=== PATIENT | female | born 2000 | race Two or more races ===

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

== ENCOUNTER 2024-11-28 19:40 | Emergency (ER) | payer MEDICAID, OTHER ==
[~2024-11-28] VITALS: Ht 165.1 cm; Wt 102.6 kg
[2024-11-28] MEDS ORDERED: ACET500T58 PO (20:11)
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
[2024-11-28 20:34] VITALS: BP 140/92; PULSE 78; RESP 18; TEMP 98.7; O2SAT 100
== END 2024-11-28 20:36 | disposition home or self-care (01) ==
LOC: ER 19:40
DX: S40.012A Contusion of left shoulder, initial encounter (principal); R51.9 Headache, unspecified; Z88.0 Allergy status to penicillin; V49.40XA Driver injured in collision with unspecified motor vehicles in traffic accident, initial encounter; Y93.89 Activity, other specified; Y92.488 Other paved roadways as the place of occurrence of the external cause; Y99.8 Other external cause status